=== PATIENT | female | born 1975 | race Caucasian/White ===

== ENCOUNTER 2021-01-16 13:43 | Emergency (ER) | payer MEDICAID ==
[~2021-01-16] VITALS: Ht 165.1 cm; Wt 75.0 kg
[2021-01-16] MEDS ORDERED: KETOROLAC 30MG/ML VIAL IM ONE (14:15)
[2021-01-16 14:25] VITALS: BP 145/85
[2021-01-16] MEDS ORDERED: NAPR-1176 MT (15:28)
== END 2021-01-16 15:47 | disposition home or self-care (01) ==
LOC: ER 14:00
DX: S40.021A Contusion of right upper arm, initial encounter (principal); M54.9 Dorsalgia, unspecified; V49.49XA Driver injured in collision with other motor vehicles in traffic accident, initial encounter; Y93.89 Activity, other specified; Y92.89 Other specified places as the place of occurrence of the external cause; Y99.8 Other external cause status
CPT/HCPCS: 71045; 73110; 81025; 96372; 99284; J1885